=== PATIENT | female | born 1955 | race Caucasian/White ===

== ENCOUNTER → 2017-08-12 | Outpatient (CLI) | payer BC ==
[~2017-08-12] MED LIST: ASPIRIN 81M81 MG/TA2 PO; IMITREX100 MG PO; LEXAPRO 10MG10 MG PO; LIPITOR 10MG10 MG PO; LOTENSIN40 MG PO; VERELAN240 MG PO
== END ==
LOC: MC.RAD 14:20
DX: Z12.31 Encounter for screening mammogram for malignant neoplasm of breast (principal); Z98.82 Breast implant status

== ENCOUNTER 2017-12-23 11:38 | Emergency (ER) | payer BC ==
[~2017-12-23] VITALS: Ht 162.6 cm; Wt 79.1 kg
[2017-12-23 11:50] VITALS: BP 139/77; TEMP 98.2
[2017-12-23 13:32] VITALS: PULSE 78
== END 2017-12-23 13:34 | disposition home or self-care (01) ==
LOC: COL.ER 11:38
DX: S06.0X9A Concussion with loss of consciousness of unspecified duration, initial encounter (principal); I10 Essential (primary) hypertension; E78.5 Hyperlipidemia, unspecified; Z85.3 Personal history of malignant neoplasm of breast; Z87.19 Personal history of other diseases of the digestive system; Z80.0 Family history of malignant neoplasm of digestive organs; Z79.82 Long term (current) use of aspirin; W18.39XA Other fall on same level, initial encounter; W22.8XXA Striking against or struck by other objects, initial encounter

== ENCOUNTER → 2018-10-23 | Outpatient (CLI) | payer MEDICARE, OTHER | LOC: MC.RAD 11:45 | DX: Z12.31 Encounter for screening mammogram for malignant neoplasm of breast (principal); Z98.82 Breast implant status ==

== ENCOUNTER → 2020-01-25 | Outpatient (CLI) | payer MEDICARE, OTHER | LOC: MC.RAD 16:26 | DX: Z12.31 Encounter for screening mammogram for malignant neoplasm of breast (principal); C50.912 Malignant neoplasm of unspecified site of left female breast; Z98.82 Breast implant status ==

== ENCOUNTER 2020-04-06 11:45 | Emergency (ER) | payer MEDICARE, OTHER ==
[~2020-04-06] VITALS: Ht 162.6 cm; Wt 77.3 kg
[2020-04-06 11:49] VITALS: TEMP 97.7
[2020-04-06] MEDS ORDERED: CALCIUM WITH D31 CTB (12:33)
[2020-04-06] MEDS ORDERED: COLACE 100100 MG/CAP PO (12:33)
[2020-04-06 12:34] LABS: BASO % 0.5 % (0.0-2.0); EOS # 0.1 (0.0-0.7); EOS % 1.1 % (0-4.0); GRAN # 3.9 (1.4-6.5); GRAN % 60.9 % (42.2-75.2); HEMOGLOBIN 13.6 g/dl (12.5-16.0); LYMPH % 31.5 % (20.0-51.0); MEAN CELL VOLUME 95 fl (80.0-100.0); MEAN CORPUSCULAR HEMOGLOBIN 32 pg (27.0-31.0); MEAN CORPUSCULAR HGB CONC 33 g/dl (33.0-37.0); MEAN PLATELET VOLUME 8.5 fl (7.4-10.4); MONO # 0.4 (0.1-0.6); MONO % 5.8 % (1.7-9.3); PLATELET COUNT 263 K/mm3 (130-400); RED BLOOD COUNT 4.32 M/mm3 (4.10-5.30); REDCELL DISTRIBUTION WIDTH-CV 12.7 % (11.5-14.5)
[2020-04-06 12:38] LABS: PROTHROMBIN TIME 11.1 SECONDS (9.7-12.8)
[2020-04-06 12:40] LABS: ALANINE AMINOTRANSFERASE 21 U/L (4-34); ALBUMIN 3.9 gm/dL (3.5-5.0); ALKALINE PHOSPHATASE 125 U/L (50-136); ANION GAP 5 mmol/L (7-16); AST,SGOT 29 U/L (15-37); BILIRUBIN,TOTAL 0.7 mg/dL (0.0-1.0); BLOOD UREA NITROGEN 12 mg/dL (7-17); CALCIUM 9.3 mg/dL (8.4-10.2); CARBON DIOXIDE 25 mmol/L (22-30); CHLORIDE 105 mmol/L (98-107); CREATININE, serum 0.99 (0.52-1.25); GLUCOSE 91 mg/dL (74-106); LIPASE 65 U/L (23-300); SODIUM 135 mmol/L (137-145); TOTAL PROTEIN 6.9 gm/dL (6.4-8.2)
[2020-04-06 12:43] LABS: D-DIMER < 200.00 ng/mLDDu (200-230)
[2020-04-06 12:54] LABS: TROPONIN-I < 0.012 ng/mL (0.000-0.035)
[2020-04-06 16:45] VITALS: BP 149/83; PULSE 72
== END 2020-04-06 16:51 | disposition home or self-care (01) ==
LOC: COL.ER 11:45
PROVIDERS: Emergency Medicine
DX: R07.89 Other chest pain (principal); I10 Essential (primary) hypertension; E78.5 Hyperlipidemia, unspecified; Z88.6 Allergy status to analgesic agent; Z79.82 Long term (current) use of aspirin; Z82.49 Family history of ischemic heart disease and other diseases of the circulatory system; Z85.3 Personal history of malignant neoplasm of breast
CPT/HCPCS: J7030

== ENCOUNTER 2020-11-22 00:25 | Observation (INO) | payer MEDICARE, OTHER ==
[~2020-11-22] VITALS: Ht 162.6 cm; Wt 79.9 kg
[~2020-11-22 00:25] MED LIST changes: +CALCIUM WITH D31 CTB; +COLACE 100100 MG/CAP PO
[2020-11-22 00:52] LABS: BASO # 0.1 (0.0-0.2); BASO % 0.8 % (0.0-2.0); EOS # 0.2 (0.0-0.7); EOS % 2.3 % (0-4.0); GRAN # 3.8 (1.4-6.5); GRAN % 50.6 % (42.2-75.2); HEMATOCRIT 39.4 % (37.0-47.0); LYMPH # 2.8 (1.2-3.4); LYMPH % 37.8 % (20.0-51.0); MEAN CELL VOLUME 94 fl (80.0-100.0); MEAN CORPUSCULAR HEMOGLOBIN 31 pg (27.0-31.0); MEAN CORPUSCULAR HGB CONC 33 g/dl (33.0-37.0); MEAN PLATELET VOLUME 8.8 fl (7.4-10.4); MONO # 0.6 (0.1-0.6); MONO % 8.1 % (1.7-9.3); PLATELET COUNT 269 K/mm3 (130-400); RED BLOOD COUNT 4.19 M/mm3 (4.10-5.30); REDCELL DISTRIBUTION WIDTH-CV 13.4 % (11.5-14.5)
[2020-11-22 01:00] LABS: INR 0.9 (0.8-3.0); PROTHROMBIN TIME 10.4 SECONDS (9.7-12.8)
[2020-11-22 01:01] LABS: ALBUMIN 3.9 gm/dL (3.5-5.0); BILIRUBIN,TOTAL 0.3 mg/dL (0.0-1.0); CALCIUM 8.9 mg/dL (8.4-10.2); CREATININE, serum 0.85 (0.52-1.25); POTASSIUM 3.4 mmol/L (3.4-5.0)
[2020-11-22 01:02] LABS: PARTIAL THROMBOPLASTIN TIME 34.7 SECONDS (26.0-37.0)
[2020-11-22] MEDS ORDERED: ZOLOFT 100MG100 MG PO (01:11)
[2020-11-22] MEDS ORDERED: EPA FISH OIL1 SGL PO (01:12)
[2020-11-22 01:14] LABS: TROPONIN-I 0.092 ng/mL (0.000-0.035)
[2020-11-22 02:07] LABS: LIPASE 97 U/L (23-300)
[2020-11-22 03:01] LABS: COLLECTION METHOD CLEAN CATCH
[2020-11-22 03:07] LABS: PH 6 (5-8); SQUAMOUS EPITHELIAL None Seen /hpf; URINE APPEARANCE Clear; URINE BACTERIA None Seen /hpf; URINE BILIRUBIN Negative (NEGATIVE); URINE BLOOD Negative (NEGATIVE); URINE COLOR Straw; URINE GLUCOSE Negative (NEGATIVE); URINE KETONE Negative (NEGATIVE); URINE LEUKOCYTE ESTERASE Negative (NEGATIVE); URINE NITRATE Negative (NEGATIVE); URINE PROTEIN(semi-quant) Negative (NEGATIVE); URINE RBC 0-2 /hpf; URINE UROBILINOGEN Negative (NEGATIVE)
[2020-11-22] MEDS ORDERED: VITAMIN D31000 I1 PO (03:17)
[2020-11-22] MEDS ORDERED: OMEGA-3 1000 MG1 CAP PO (03:17)
[2020-11-22] MEDS ORDERED: COLACE 100100 MG/CAP PO (03:18)
[2020-11-22 04:22] VITALS: BP 124/66; PULSE 69; TEMP 98
--- NOTE | 2020-11-22 06:08 | NUR ---
ER ADMIT- C/O BEING DIZZY AND LIGHTHEAD W NAUSEA LAST NIGHT. BROUGHT TO FLOOR ON CART, AMB TO BED. HEPARIN DRIP RUNNING AT 9.5ML/HR. TRENDING TROPONINS. DENIES CURRENT CHEST PAIN, DIZZY OR LIGHTHEAD, DOES HAVE MILD HEADACHE. AOX4 , ASSESSMENT AND VITALS STABLE. ECO THIS AM. ORIENTATED TO ROOM. CALL LIGHT WI REACH. NEEDS MET.
--- NOTE | 2020-11-22 07:00 | NUR ---
Report received from LINO Mares. PT in bed resting, denies chest pain at this time, rupal tarik to monitor.
[2020-11-22 07:17] LABS: CHOLESTEROL 205 mg/dL (120-200); CHOLESTEROL RISK RATIO 4.1; HDL CHOLESTEROL 50 mg/dL; LDL CHOLESTEROL 132 mg/dL; MAGNESIUM 2.2 mg/dL (1.6-2.3); TRIGLYCERIDE 117 mg/dL
[2020-11-22 07:30] LABS: TROPONIN-I < 0.012 ng/mL (0.000-0.035)
--- NOTE | 2020-11-22 08:00 | NUR ---
Assessment charted. Pt doing well, resting in bed ,deneis pain or other needs, IVF to RA/C with heparin gtt infusing. Will continue to monitor.
[2020-11-22 08:32] VITALS: BP 134/70; PULSE 63; TEMP 97.3
[2020-11-22 12:10] VITALS: BP 131/69; PULSE 76; TEMP 97.8
[2020-11-22 16:25] VITALS: BP 131/70; PULSE 79; TEMP 98
--- NOTE | 2020-11-22 17:07 | NUR ---
Plan to return home with Ryan SW met with patient about DC plan. Patient shares that her PCP is Dr. Qiu. Patient resides locally with spouse and reports that he is her verbal decision maker if she is unable to talk for herself. Denies having DPOA. Patient reports that her provides transportatiom denies having any DME use but may consider home health. Educated on services. Patient may transfer to [facility]. Will continue to follow.
[2020-11-22 18:52] VITALS: BP 120/63; PULSE 84; TEMP 98.2
--- NOTE | 2020-11-22 19:26 | NUR ---
Patient quietly reading in room, updated on plan of care, denies pain, respirations even & unlabored, awaiting bed at transferring hospital, tolerating heparin gtt w/o issue, telemetry in use.
--- NOTE | 2020-11-22 19:36 | NUR ---
Bedside shift report given to nightshift nurse, updated pt what we are still awaiting bed assignment at [facility] for transfer this evening. Nightshift to resume care.
--- NOTE | 2020-11-22 21:02 | NUR ---
patient updated on transfer, report called to Rn at [facility], awaiting ambulance, stable condition
--- NOTE | 2020-11-22 21:41 | NUR ---
Transferred to receiving hospital per EMS, turned care over to rand butting machine operator, report given
== END 2020-11-22 21:45 | disposition short-term general hospital (02) ==
LOC: COL.ER 00:25 → MEDICAL 01:54
PROVIDERS: Emergency Medicine; Nurse Practitioner Family; ADMIT Family Medicine
DX: I16.0 Hypertensive urgency (principal); E78.5 Hyperlipidemia, unspecified; I10 Essential (primary) hypertension; G43.909 Migraine, unspecified, not intractable, without status migrainosus; I21.4 Non-ST elevation (NSTEMI) myocardial infarction; I08.1 Rheumatic disorders of both mitral and tricuspid valves; Z88.5 Allergy status to narcotic agent; Z79.82 Long term (current) use of aspirin; Z90.710 Acquired absence of both cervix and uterus; Z85.3 Personal history of malignant neoplasm of breast; Z92.3 Personal history of irradiation; Z92.21 Personal history of antineoplastic chemotherapy
CPT/HCPCS: G0378; J1644; J2405; J7030; Q9967

== ENCOUNTER 2021-07-21 07:19 | Day surgery (SDC) | payer MEDICARE, OTHER ==
[~2021-07-21] VITALS: Ht 162.6 cm; Wt 75.5 kg
[~2021-07-21 07:19] MED LIST changes: +EPA FISH OIL1 SGL PO; +OMEGA-3 1000 MG1 CAP PO; +VITAMIN D31000 I1 PO; +ZOLOFT 100MG100 MG PO
[2021-07-21 07:36] VITALS: BP 132/80; PULSE 79; TEMP 97.8
[2021-07-21] MEDS ORDERED: FISH OIL1000 MG PO (08:00)
[2021-07-21] MEDS ORDERED: IMITREX100 MG PO (08:02)
[2021-07-21] MEDS ORDERED: TYLENOL 325MG325 MG PO (08:03)
[2021-07-21 09:30] VITALS: BP 112/74; PULSE 77
--- NOTE | 2021-07-21 09:30 | NUR ---
Patient returns to [facility] per cart after having colonoscopy and is awake and alert. Assisted from cart to recliner with two person assist. IV fluids infusing and spouse in room. Call light in reach. Given apple juice to drink. Denies pain or nausea.
[2021-07-21 09:45] VITALS: BP 124/79; PULSE 63
--- NOTE | 2021-07-21 09:45 | NUR ---
Eating muffin and drinking juice. Spouse in room.
[2021-07-21 10:00] VITALS: BP 121/74; PULSE 61
--- NOTE | 2021-07-21 10:00 | NUR ---
Tolerated muffin and juice. IV discontinued and site is free of redness. Patient dresses self.
--- NOTE | 2021-07-21 10:13 | NUR ---
Dismissal instructions given and signed. Verbalized understanding of these.
--- NOTE | 2021-07-21 10:15 | NUR ---
Patient dismissed to home driven by spouse and taken to the front door per wheelchair and assisted into vehicle with instructions in hand.
== END 2021-07-21 10:15 | disposition home or self-care (01) ==
LOC: SDCO 07:19
DX: Z12.11 Encounter for screening for malignant neoplasm of colon (principal); I10 Essential (primary) hypertension; K58.9 Irritable bowel syndrome, unspecified; G43.909 Migraine, unspecified, not intractable, without status migrainosus; E78.5 Hyperlipidemia, unspecified; M85.80 Other specified disorders of bone density and structure, unspecified site; M19.90 Unspecified osteoarthritis, unspecified site; Z90.89 Acquired absence of other organs; Z86.010 Personal history of colon polyps; Z85.828 Personal history of other malignant neoplasm of skin; Z85.3 Personal history of malignant neoplasm of breast; Z80.0 Family history of malignant neoplasm of digestive organs
CPT/HCPCS: G0105; J7120

== ENCOUNTER 2024-03-27 10:00 | Outpatient (RCR) | payer MEDICARE, OTHER ==
[~2024-03-27 10:00] MED LIST changes: +ASPIRIN E.C. 8181 MG PO; +CEPHALEXIN500 M1 PO; +DECADRON 1MG TAB1 MG PO; +DULCOLAX TAB5 MG PO; +FISH OIL1000 MG PO; +LIPITOR20 MG PO; +MICROZIDE12.5 MG PO; +MIRALAX PA17 GM/Dose PO; +NEURONTIN600 MG/TAB PO; +NORCO 325 MG-51 TAB PO; +PERCOCET 325 MG1 TA2 PO; +PERCOCET 325 MG1 TA3 PO; +ROBAXIN 75750 MG/TAB PO; +TYLENOL 325MG325 MG PO; +ULTRAM 50MG TAB50 MG PO; +VERAPAMIL240 MG/TAB PO; +VITAMIN D31000 IU; +ZOFRAN ODT4 MG PO
== END 2024-03-28 | disposition home or self-care (01) ==
LOC: PT.GENESIS
DX: M54.50 Low back pain, unspecified (principal); Z98.1 Arthrodesis status

== ENCOUNTER 2024-04-26 08:15 | Outpatient (RCR) | payer MEDICARE, OTHER | END 2024-04-28 | disposition home or self-care (01) | LOC: PT.GENESIS | DX: M54.50 Low back pain, unspecified (principal); Z98.1 Arthrodesis status ==

== ENCOUNTER 2024-05-25 09:45 | Outpatient (RCR) | payer MEDICARE, OTHER | END 2024-05-28 | disposition home or self-care (01) | LOC: PT.GENESIS | DX: M54.50 Low back pain, unspecified (principal); Z98.1 Arthrodesis status ==

== ENCOUNTER 2024-06-05 13:00 | Outpatient (RCR) | payer MEDICARE, OTHER ==
[2024-06-06] MEDS ORDERED: NORCO 325 MG-51 TAB PO (21:31)
== END 2024-06-28 | disposition home or self-care (01) ==
LOC: PT.GENESIS
DX: M54.50 Low back pain, unspecified (principal); Z98.1 Arthrodesis status

== ENCOUNTER 2024-06-06 16:36 | Emergency (ER) | payer MEDICARE, OTHER ==
[~2024-06-06] VITALS: Ht 162.6 cm; Wt 77.3 kg
[2024-06-06 16:43] VITALS: BP 138/86; TEMP 98.1
[2024-06-06] MEDS ORDERED: NORCO 325 MG-51 TAB PO (21:31)
[2024-06-06] MEDS ORDERED: Home HYDROcodone/Acetaminophen 5/325 MG #4 TABS/PACK PO ONE (21:45)
[2024-06-06 22:00] VITALS: PULSE 81
== END 2024-06-06 22:00 | disposition home or self-care (01) ==
LOC: COL.ER 16:36
DX: S82.832A Other fracture of upper and lower end of left fibula, initial encounter for closed fracture (principal); W19.XXXA Unspecified fall, initial encounter; Y92.096 Garden or yard of other non-institutional residence as the place of occurrence of the external cause